=== PATIENT | male | born 1985 | race Caucasian/White ===

== ENCOUNTER 2016-10-22 05:07 | Emergency (ER) | payer OTHER ==
[~2016-10-22] VITALS: Ht 175.3 cm; Wt 80.7 kg
[2016-10-22 05:07] VITALS: BP 149/69
[2016-10-22] MEDS ORDERED: LORazepam 2 MG/ML VIAL IVP ONE (05:15)
[2016-10-22] MEDS ORDERED: LORazepam 2 MG/ML VIAL ONE (05:20)
[2016-10-22] MEDS ORDERED: ACETAMINOPHEN 650 MG SUPP RC ONE (05:42)
[2016-10-22 05:55] LABS: BASOPHILS # (AUTO) 0.2 K/uL (0.00-0.22); BASOPHILS % (AUTO) 2.3 % (0.0-2.0); EOSINOPHILS % (AUTO) 0.6 % (0.0-4.0); HEMATOCRIT 35.6 % (36-52); HEMOGLOBIN 12.1 g/dL (12.0-18.0); LYMPHOCYTES # (AUTO) 1.1 K/uL (2.0-11.5); LYMPHOCYTES % (AUTO) 14.9 % (20.5-51.1); MEAN CORPUSCULAR HEMOGLOBIN 29 pg (27-31); MEAN CORPUSCULAR HGB CONC 34 g/dL (33-37); MEAN CORPUSCULAR VOLUME 85 fL (80-94); MONOCYTES # (AUTO) 0.6 K/uL (0.8-1.0); NEUTROPHILS # (AUTO) 5.5 K/uL (1.8-7.7); NEUTROPHILS % (AUTO) 74.2 % (42.2-75.2); PLATELET COUNT (AUTO) 361 K/uL (140-450); RED BLOOD CELL COUNT(AUTO) 4.21 MIL/uL (4.20-6.10); RED CELL DISTRIBUTION WIDTH 14.6 % (11.6-13.7); WHITE BLOOD COUNT (AUTO) 7.4 K/uL (4.8-10.8)
[2016-10-22 06:11] LABS: ANION GAP 15.9 (8-16); CARBON DIOXIDE 25.5 mmol/L (21-32); CREATININE 1.3 mg/dL (0.7-1.3); POTASSIUM 3.4 mmol/L (3.5-5.1)
[2016-10-22 06:17] LABS: ALBUMIN 4.2 g/dL (3.4-5.0); TOTAL BILIRUBIN 0.3 mg/dL (0.0-1.0)
[2016-10-22 06:24] LABS: PROTHROMBIN TIME 9.8 secs (10.8-13.4)
[2016-10-22] MEDS ORDERED: levETIRAcetam 500 MG TAB PO ONE (07:35)
[2016-10-22 07:57] VITALS: BP 110/73
[2016-10-22] MEDS ORDERED: levETIRAcetam 1,000 MG in NACL 0.9% 100 ML IV SCH (09:00)
== END 2016-10-22 07:40 | disposition short-term general hospital (02) ==
LOC: MED 05:07
DX: G40.89 Other seizures (principal); C62.90 Malignant neoplasm of unspecified testis, unspecified whether descended or undescended; C78.00 Secondary malignant neoplasm of unspecified lung; C79.31 Secondary malignant neoplasm of brain
CPT/HCPCS: 36415; 51702; 70450; 80053; 82948; 85025; 85610; 85730; 96374; 99285; J2060; J1953

== ENCOUNTER 2017-02-04 13:02 | Emergency (ER) | payer OTHER ==
[~2017-02-04] VITALS: Ht 172.7 cm; Wt 79.8 kg
[2017-02-04 13:06] VITALS: BP 136/87
--- NOTE | 2017-02-04 13:25 | NUR ---
Patient BIBA to bed 1 at this time.
--- NOTE | 2017-02-04 13:28 | NUR ---
PT BIBA S/P SEIZURE AT HOME, AND ALSO WITNESSED SEIZURE EN ROUTE. PT POST ICTAL INITIALLY, WAS GIVEN VERSED EN ROUTE. PT CURRENTLY ALERT ORIENTED X3, DENIES ANY PAIN. PT WITH HX BRAIN CA WITH LOBECTOMY. S/P BRAIN SURGERY IN OCT 2016, SCAR NOTED TO MID STERNUM. AT BEDSIDE. REPORTS HE STOPPED TAKING HIS KEPPRA BECAUSE IT MAKES HIM SLEEPY, HE TAKES EVERY OTHER DAY. PT AN DWIFE INFORMED TO TAKE MEDS A SPRESCRIBED. SEIZURE PAD IN PLACE AT THIS TIME. LS-CLR LAMONT, SR ON MONITOR, RESP EVEN AND UNLABORED, ON RA @98%, ABLE TO FOLLOW SIMPLE COMMANDS. AWAITING ER MD UP.
--- NOTE | 2017-02-04 13:57 | NUR ---
NEURO CHECKS INTACT, PERRL
[2017-02-04] MEDS ORDERED: levETIRAcetam 500 MG TAB PO ONE (14:00)
[2017-02-04 15:13] LABS: BASOPHILS % (AUTO) 0.5 % (0.0-2.0); EOSINOPHILS # (AUTO) 0.1 K/uL (0-0.4); EOSINOPHILS % (AUTO) 0.8 % (0.0-4.0); HEMATOCRIT 37.7 % (36-52); HEMOGLOBIN 13.1 g/dL (12.0-18.0); LYMPHOCYTES # (AUTO) 0.6 K/uL (2.0-11.5); LYMPHOCYTES % (AUTO) 8.1 % (20.5-51.1); MEAN CORPUSCULAR HEMOGLOBIN 30 pg (27-31); MEAN CORPUSCULAR HGB CONC 35 g/dL (33-37); MEAN CORPUSCULAR VOLUME 87 fL (80-94); MONOCYTES # (AUTO) 0.6 K/uL (0.8-1.0); MONOCYTES % (AUTO) 8.3 % (1.7-9.3); NEUTROPHILS # (AUTO) 6.1 K/uL (1.8-7.7); NEUTROPHILS % (AUTO) 82.3 % (42.2-75.2); PLATELET COUNT (AUTO) 203 K/uL (140-450); RED BLOOD CELL COUNT(AUTO) 4.34 MIL/uL (4.20-6.10); RED CELL DISTRIBUTION WIDTH 14.1 % (11.6-13.7); WHITE BLOOD COUNT (AUTO) 7.4 K/uL (4.8-10.8)
[2017-02-04 15:19] LABS: APPEARANCE,URINE CLEAR (CLEAR); BILIRUBIN,URINE NEGATIVE (NEGATIVE); BLOOD, URINE NEGATIVE (NEGATIVE); COLOR,URINE YELLOW (YELLOW); LEUKOCYTE ESTERASE ,URINE NEGATIVE (NEGATIVE); NITRITE, URINE NEGATIVE (NEGATIVE); PH,URINE 5.5 (5.0-9.0); UGLUCOSE NEGATIVE (NEGATIVE)
[2017-02-04 15:21] LABS: BARBITURATE, URINE NEG. ng/ml (NEG <=200); BENZODIAZEPINE, URINE POS. ng/mL (NEG <=200); CANNABINOID, URINE NEG. ng/mL (NEG <=50); COCAINE, URINE NEG. ng/mL (NEG <=300); OPIATE, URINE NEG. ng/mL (NEG <=2000); PHENCYCLIDINE SCREEN,URINE NEG. ng/mL (NEG <=25)
[2017-02-04 15:32] LABS: CARBON DIOXIDE 27.6 mmol/L (21-32); CREATININE 1.1 mg/dL (0.7-1.3); POTASSIUM 3.6 mmol/L (3.5-5.1)
[2017-02-04 15:35] LABS: PROTHROMBIN TIME 10.6 secs (10.8-13.4)
[2017-02-04 15:46] LABS: ALBUMIN 3.9 g/dL (3.4-5.0); TOTAL BILIRUBIN 0.7 mg/dL (0.0-1.0)
--- NOTE | 2017-02-04 16:45 | NUR ---
NO ACUTE CHANGES IN CONDITION. PT HAS HAD NO SEIZURES. AT BEDSIDE, RESP EEVN AND UNLABORED, ON RA@98%
[2017-02-04 17:05] VITALS: BP 129/84
--- NOTE | 2017-02-04 17:06 | NUR ---
Patient discharged with v/s stable. Written and verbal after care instructions given and explained. Patient verbalized understanding. Ambulatory with to home. All questions addressed prior to discharge. Advised to follow up with PMD.
== END 2017-02-04 17:06 | disposition home or self-care (01) ==
LOC: MED 13:02
DX: R56.9 Unspecified convulsions (principal); H53.8 Other visual disturbances; C71.9 Malignant neoplasm of brain, unspecified; Z85.47 Personal history of malignant neoplasm of testis; Z85.118 Personal history of other malignant neoplasm of bronchus and lung
CPT/HCPCS: 36415; 70450; 80053; 80305; 81003; 84484; 85025; 85610; 99285

== ENCOUNTER 2017-03-16 21:22 | Emergency (ER) | payer OTHER ==
[~2017-03-16] VITALS: Ht 177.8 cm; Wt 92.1 kg
[2017-03-16 21:24] VITALS: BP 151/67
--- NOTE | 2017-03-16 21:29 | NUR ---
to lobby, a/w will dunne ermd noted
--- NOTE | 2017-03-16 21:58 | NUR ---
PT TO ER BED 3 VIA W/C WITH RN YUNIEL/STEFANO. BS 88. ER MD TO JEOVANNY.
--- NOTE | 2017-03-16 22:00 | NUR ---
PATIENT IS A 31 Y/O MALE WHO PRESENTS TO THE ED C/O SEIZURE. PT STATES, "I HAVE BRAIN CANCER AND I GET SEIZURES." WITNESSED 30 SECOND ABSENT SEIZURE IN ED LOB, BROUGHT TO BED VIA WHEELCHAIR WITH JUDIE MARTÍNEZ AND SAMSON HOGAN. PT DENIES AURA AND DENIES POSTICTAL PHASE. PT DENIES PAIN AT THIS TIME. PT DENIES CP, SOB, N/V/D. PT AAOX4, RR EVEN/UNLABORED. PT REPOSITIONED FOR COMFORT, BED IN LOWEST POSITION. MARIA INES TATUM NOTIFIED. WILL CONTINUE TO MONITOR. Addendum: 03/16/17 at 2235 by MEDDCV PATIENT IS A 31 Y/O MALE WHO PRESENTS TO THE ED C/O SEIZURE. PT STATES, "I HAVE BRAIN CANCER AND I GET SEIZURES." WITNESSED 30 SECOND ABSENT SEIZURE IN ED [facility], BROUGHT TO BED VIA WHEELCHAIR WITH JUDIE MARTÍNEZ AND SAMSON HOGAN. PT DENIES AURA AND DENIES POSTICTAL PHASE. PT DENIES PAIN AT THIS TIME. PT DENIES CP, SOB, N/V/D. PT AAOX4, RR EVEN/UNLABORED. PT REPOSITIONED FOR COMFORT, BED IN LOWEST POSITION. MARIA INES TATUM NOTIFIED. WILL CONTINUE TO MONITOR. H/O---SEIZURES, BRAIN CA.
[2017-03-16 23:24] LABS: BASOPHILS # (AUTO) 0.1 K/uL (0.00-0.22); EOSINOPHILS # (AUTO) 0.1 K/uL (0-0.4); EOSINOPHILS % (AUTO) 1.2 % (0.0-4.0); HEMOGLOBIN 13.3 g/dL (12.0-18.0); LYMPHOCYTES # (AUTO) 0.9 K/uL (2.0-11.5); LYMPHOCYTES % (AUTO) 13.5 % (20.5-51.1); MEAN CORPUSCULAR HEMOGLOBIN 29 pg (27-31); MEAN CORPUSCULAR HGB CONC 34 g/dL (33-37); MEAN CORPUSCULAR VOLUME 86 fL (80-94); MONOCYTES # (AUTO) 0.5 K/uL (0.8-1.0); MONOCYTES % (AUTO) 8.3 % (1.7-9.3); NEUTROPHILS # (AUTO) 4.9 K/uL (1.8-7.7); PLATELET COUNT (AUTO) 259 K/uL (140-450); RED BLOOD CELL COUNT(AUTO) 4.52 MIL/uL (4.20-6.10); RED CELL DISTRIBUTION WIDTH 13.1 % (11.6-13.7); WHITE BLOOD COUNT (AUTO) 6.5 K/uL (4.8-10.8)
[2017-03-16 23:26] LABS: ANION GAP 15.5 (8-16); CARBON DIOXIDE 25.2 mmol/L (21-32); CREATININE 0.9 mg/dL (0.7-1.3); POTASSIUM 3.7 mmol/L (3.5-5.1)
[2017-03-16 23:32] LABS: ALBUMIN 3.9 g/dL (3.4-5.0); TOTAL BILIRUBIN 0.4 mg/dL (0.0-1.0)
--- NOTE | 2017-03-17 | NUR ---
PATIENT IS RESTING AT THIS TIME.
--- NOTE | 2017-03-17 02:00 | NUR ---
PATIENT IS RESTING AT THIS TIME.
[2017-03-17 04:45] VITALS: BP 123/83
--- NOTE | 2017-03-17 04:45 | NUR ---
Patient to be transferred to [facility]. Is being transferred due to HIGHER LEVEL OF CARE. Receiving facility has accepting physician and available space. ER physician has signed transfer form. Patient or responsible alliance party has agreed to transfer and signed form. Patient belongings inventoried and will be sent with patient. Copy of nursing notes, lab reports, EKG, Physicians Orders and X-rays to be sent with patient. Report called to BRYANT HOGAN at receiving facility. [facility] ambulance service has been called for transfer. [facility] IS EN ROUTE. Addendum: 03/17/17 at 0449 by MEDDCV Patient to be transferred to [facility]. Is being transferred due to CONTINUED LEVEL OF CARE. Receiving facility has accepting physician and available space. ER physician has signed transfer form. Patient or responsible alliance party has agreed to transfer and signed form. Patient belongings inventoried and will be sent with patient. Copy of nursing notes, lab reports, EKG, Physicians Orders and X-rays to be sent with patient. Report called to BRYANT HOGAN at receiving facility. [facility] ambulance service has been called for transfer. [facility] IS EN ROUTE.
== END 2017-03-17 04:45 | disposition home or self-care (01) ==
LOC: MED 21:22
DX: C79.31 Secondary malignant neoplasm of brain (principal); C62.90 Malignant neoplasm of unspecified testis, unspecified whether descended or undescended
CPT/HCPCS: 36415; 70450; 80053; 81002; 83690; 85025; 85610; 85730; 99285